=== PATIENT | female | born 1980 | race Caucasian/White ===

== ENCOUNTER → 2018-08-14 | Outpatient (CLI) | payer BC | END | disposition home or self-care (01) | LOC: LAB SHORT 19:29 → LAB 19:29 | PROVIDERS: Nurse Practitioner | DX: Z01.419 Encounter for gynecological examination (general) (routine) without abnormal findings (principal) | CPT/HCPCS: G0145 ==

== ENCOUNTER → 2021-04-05 | Outpatient (CLI) | payer BC ==
[2021-04-06 14:46] LABS: Candida species (DNA Probe) Negative (NEGATIVE); G. vaginalis (DNA Probe) Negative (NEGATIVE); T. vaginalis (DNA Probe) Negative (NEGATIVE)
== END | disposition home or self-care (01) ==
LOC: LAB SHORT 09:15
PROVIDERS: Nurse Practitioner Family
DX: N89.8 Other specified noninflammatory disorders of vagina (principal)
CPT/HCPCS: 87070; 87205; 87480; 87510; 87660